=== PATIENT | female | born 1940 | race Asian ===

== ENCOUNTER 2023-03-02 01:15 | Emergency (ER) | payer BC, MEDICAID ==
[~2023-03-02] VITALS: Ht 157.5 cm; Wt 54.4 kg
[2023-03-02 01:29] VITALS: BP_SYST 152
--- NOTE | 2023-03-02 01:29 | NUR ---
Triaged and placed patient back to the waiting room. No acute respiratory distress at this time. VSS. Informed patient to notify ED staff for any changes in condition or worsening of symptoms while waiting to be seen by a provider. Patient verbalized understanding.
[2023-03-02] MEDS ORDERED: ASPIRIN 81 MG TAB.CHEW PO ONE (01:45)
--- NOTE | 2023-03-02 01:52 | NUR ---
Patient placed in ER bed 1 for evaluation. Bed placed in lowest position with side rails up. Report given to Peter CARY for continuity of care. Instructed to notify ED staff for any changes in condition or worsening of symptoms while waiting to be seen by the provider. Patient verbalized understanding.
--- NOTE | 2023-03-02 02:04 | NUR ---
Oxyacetylene Torch Operator at bedside.
--- NOTE | 2023-03-02 02:06 | NUR ---
Portable x-ray done at bedside.
[2023-03-02 02:19] LABS: BASOPHILS % (AUTO) 0.5 % (0.0-2.0); EOSINOPHILS # (AUTO) 0.5 K/uL (0.0-0.4); EOSINOPHILS % (AUTO) 5.2 % (0.0-4.0); HEMATOCRIT 36.5 % (36-48); HEMOGLOBIN 12.2 g/dL (12.0-16.0); LYMPHOCYTES % (AUTO) 31.7 % (20.5-51.5); MEAN CORPUSCULAR HEMOGLOBIN 29 pg (27-31); MEAN CORPUSCULAR HGB CONC 33 % (32-36); MEAN CORPUSCULAR VOLUME 87 fL (79.0-98.0); MONOCYTES # (AUTO) 0.8 K/uL (0.0-1.0); NEUTROPHILS # (AUTO) 5.2 K/uL (1.8-7.7); NEUTROPHILS % (AUTO) 54.6 % (40.0-70.0); PLATELET COUNT (AUTO) 223 K/uL (130-430); RED BLOOD CELL COUNT(AUTO) 4.19 MIL/uL (4.2-6.2); RED CELL DISTRIBUTION WIDTH 13.8 % (9.0-15.0); WHITE BLOOD COUNT (AUTO) 9.5 K/uL (4.8-10.8)
[2023-03-02 02:31] LABS: ANION GAP 7 (5-15); CALCIUM 8.7 mg/dL (8.4-11.0); CHLORIDE 106 mmol/L (98-107); GLUCOSE 98 mg/dL (70-99); UREA NITROGEN, BLOOD 18 mg/dL (8-21)
[2023-03-02 02:38] LABS: ALANINE AMINOTRANSFERASE 19 U/L (12-78); ALBUMIN 3.4 g/dL (3.4-4.8); ASPARTATE AMINOTRANSFERASE 17 U/L (10-37); TOTAL BILIRUBIN 0.4 mg/dL (0.0-1.0)
--- NOTE | 2023-03-02 03:33 | NUR ---
Dr. Sunitha Barahona at bedside examining the patient.
[2023-03-02] MEDS ORDERED: POTA-80 PO (04:07)
[2023-03-02] MEDS ORDERED: FURO-150 PO (04:07)
[2023-03-02 04:10] VITALS: BP_SYST 132
--- NOTE | 2023-03-02 04:13 | NUR ---
MD AT BEDSIDE TO DISCUSS FINDINGS AND DISCHARGE PLANS
--- NOTE | 2023-03-02 04:44 | NUR ---
Patient given written and verbal discharge instructions and verbalizes understanding. ER MD MARISCAL discussed with patient the results and treatment provided. Patient in stable condition. ID arm band removed. Rx of LASIX, POTASSIUM given. Patient educated on pain management and to follow up with PMD. Pain Scale . Opportunity for questions provided and answered. Medication side effect fact sheet provided.
== END 2023-03-02 04:44 | disposition home or self-care (01) ==
LOC: SED 01:15
DX: R60.9 Edema, unspecified (principal); I10 Essential (primary) hypertension; E78.00 Pure hypercholesterolemia, unspecified; Z79.899 Other long term (current) drug therapy
CPT/HCPCS: 36415; 71045; 80053; 83880; 84484; 85025; 93005; 99285